=== PATIENT | male | born 1990 | race Caucasian/White ===

== ENCOUNTER 2019-07-10 21:52 | Emergency (ER) | payer MEDICAID, OTHER ==
[~2019-07-10] VITALS: Ht 175.3 cm; Wt 95.0 kg
[2019-07-10 22:59] LABS: BASOPHILS # (AUTO) 0.09 x10^3/uL (0-0.1); BASOPHILS % (AUTO) 3 % (0-1); EOSINOPHILS # (AUTO) 0.01 x10^3/uL (0-0.4); EOSINOPHILS % (AUTO) 0 % (1-7); LYMPHOCYTES # (AUTO) 0.83 x10^3/uL (1-3.4); LYMPHOCYTES % (AUTO) 26 % (22-44); MD NO; MEAN CORPUSCULAR HEMOGLOBIN 32.3 pg (27.5-34.5); MEAN CORPUSCULAR HGB CONC 34.1 g/dL (33.2-36.2); MEAN CORPUSCULAR VOLUME 94.7 fL (81-97); MEAN PLATELET VOLUME 7.9 fL (7.4-10.4); MONOCYTES # (AUTO) 0.38 x10^3/uL (0.2-0.8); MONOCYTES % (AUTO) 12 % (2-9); NEUTROPHILS # (AUTO) 1.84 x10^3/uL (1.8-6.8); NEUTROPHILS % (AUTO) 59 % (42-75); PLATELET COUNT 105 x10^3/uL (130-400); RED BLOOD COUNT 4.83 x10^6/uL (4.38-5.82); RED CELL DISTRIBUTION WIDTH 13.6 % (9.4-14.8)
[2019-07-10 23:10] LABS: ALBUMIN 3.8 g/dL (3.4-5.0); ANION GAP 11 mmol/L (5-15); CALCIUM 7.8 mg/dL (8.5-10.1); CHLORIDE 106 mmol/L (98-107)
--- NOTE | 2019-07-10 23:50 | NUR ---
mtf BIB [facility] D/T HAD SZ AND GLF HIT BACK OF HEAD HX OF SZ BUT STOPPED TAKING ANTI SZ MEDS 4 YRS ETOH pt is homeless and drank etoh. alcohol level 0.552 pt needs
--- NOTE | 2019-07-11 00:06 | NUR ---
pt si sleeping in the [facility] updated
--- NOTE | 2019-07-11 02:29 | NUR ---
pt is still sleepy but was able to walk around in the rm or went to bathroom dog is still in rm with girlfriend was notified will be dc'd when pt is able
--- NOTE | 2019-07-11 02:45 | NUR ---
given dc instruction pt understood pt up ambulated to check out with friend and dog
[2019-07-11 02:46] VITALS: BP 118/78
== END 2019-07-11 03:16 | disposition home or self-care (01) ==
LOC: ED 07-11 02:46
DX: G40.319 Generalized idiopathic epilepsy and epileptic syndromes, intractable, without status epilepticus (principal); F10.220 Alcohol dependence with intoxication, uncomplicated; Z72.9 Problem related to lifestyle, unspecified; Z75.9 Unspecified problem related to medical facilities and other health care; Z91.14 Patient's other noncompliance with medication regimen; Z63.8 Other specified problems related to primary support group
CPT/HCPCS: 36415; 70450; 72125; 80048; 80307; 82040; 85025; 93005; 99284